=== PATIENT | male | born 1950 | race Caucasian/White ===

== ENCOUNTER 2017-01-04 13:32 | Emergency (ER) | payer OTHER, BC ==
[~2017-01-04] VITALS: Ht 172.7 cm; Wt 86.5 kg
[~2017-01-04 13:32] MED LIST: AMITRIPTYLINE H10 MG PO; BYSTOLIC20 MG PO; CARDURA4 MG PO; FLOMAX0.4 M1 PO; FLOMAX0.4 MG PO; NEXIUM40 MG PO; PERCOCET 5/31 TABLET PO; TARKA 4/2401 TABLET PO; ZOFRAN4 MG PO
[2017-01-04 14:46] LABS: HEMATOCRIT 39.8 % (38.0-50.0); MCH 29.1 PG (29.0-34.0); MCHC 34.7 G/DL (30.0-36.0); MCV 83.8 FL (86-99); MEAN PLAT.VOLUME 9.4 uM^3 (9.0-12.4); PLATELET COUNT 181 K/uL (156-360); RBC DIS.WIDTH-CV 13.6 % (11.8-14.6); RED BLOOD COUNT 4.75 M/uL (4.00-5.50); WHITE BLOOD COUNT 6.4 K/uL (4.1-10.2)
[2017-01-04 14:59] LABS: CHLORIDE 111 mEq/L (99-109); POTASSIUM 3.9 mEq/L (3.7-5.4); SODIUM 143 mEq/L (136-147)
[2017-01-04 15:00] LABS: GLUCOSE 141 mg/dL (70-99)
[2017-01-04 15:02] LABS: ANION GAP 7 MEQ/L (2-14)
[2017-01-04 15:04] LABS: GFR ESTIMATE (CALCULATED) > 59 mL/min/
[2017-01-04 15:05] LABS: UREA NITROGEN (BUN) 17 mg/dL (9-23)
[2017-01-04 18:39] VITALS: BP 165/92
== END 2017-01-04 18:41 | disposition home or self-care (01) ==
LOC: EME 13:32
DX: H53.2 Diplopia (principal); R42 Dizziness and giddiness; I10 Essential (primary) hypertension; Z87.442 Personal history of urinary calculi; Z87.891 Personal history of nicotine dependence
CPT/HCPCS: 70450; 70544; 71020; 80048; 85027; 93005; 99281; 99284; J1200; J2060; J7030